=== PATIENT | male | born 1990 | race Two or more races ===

== ENCOUNTER 2016-11-03 08:05 | Emergency (ER) | payer BC ==
[2016-11-03 08:22] VITALS: BP 130/81; PULSE 90; TEMP 98; BMI 23.3
[2016-11-03] MEDS ORDERED: DIPHTH,PERTUSS(ACELL),TET 0.5 ML DISP.SYRIN IM ONE (08:37)
--- NOTE | 2016-11-03 08:40 | PDOC ---
History of Present Illness - General Chief Complaint: Laceration Stated Complaint: LACERATION TO LT HAND Time Seen by Provider: 11/03/16 08:23 History Source: Patient Exam Limitations: No Limitations - History of Present Illness Initial Comments: 11/03/16 19:49 26 yr male cut his right hand with a knife this am at home. 2 lacerations right thumb and index finger no active bleeding. Past History - Past Medical History Allergies/Adverse Reactions: Allergies Allergy/AdvReac Type Severity Reaction Status Date / Time No Known Allergies Allergy Unverified 11/03/16 08:14 - Psycho/Social/Smoking Cessation Hx Suicidal Ideation: No Smoking History: Never smoked Information on smoking cessation initiated: No Review of Systems - Review of Systems Able to Perform ROS?: Yes Is the patient limited Syriac proficient: No Constitutional: No: Symptoms Reported HEENTM: No: Symptoms Reported Integumentary: Yes: Symptoms Reported *Physical Exam - Vital Signs Last Vital Signs Temp Pulse Resp BP Pulse Ox 98 F 90 18 130/81 98 11/03/16 08:11 11/03/16 08:11 11/03/16 08:11 11/03/16 08:11 11/03/16 08:11 - Physical Exam General Appearance: Yes: Nourished, Appropriately Dressed HEENT: positive: EOMI, [place] Musculoskeletal: positive: Normal Inspection Extremity: positive: Normal Capillary Refill, Normal Inspection Integumentary: positive: Normal Color, Dry, Warm, Other (right thumb between PIP and MCP 1.0cm linear laceration dorsal side,no tendon involvement, FROM , right index finger at the tip of the finger with 0.5cm linear laceration superficial no tendon involvement, FROM nv intact all digits) Neurologic: positive: improvement nurse II-XII NML intact, Fully Oriented, Alert, Normal Mood/ Affect, Normal Response, Motor Strength 5/5 Procedures - Laceration/Wound Repair Right Proximal 1st digit Wound Length: to 2.5 cm Wound Explored: clean Wound's Depth, Shape: superficial, linear Betadine Prep: Yes Wound Repaired With: Dermabond Splint Applied: Yes (thumb splint) Right Distal 2nd digit Finger Wound Length: to 2.5 cm Wound Explored: clean Wound's Depth, Shape: superficial, linear Betadine Prep: Yes Wound Repaired With: Dermabond Medical Decision Making - Medical Decision Making 11/03/16 19:55 cc: finger lacerations superficial nv intact FROM no numbness or tingling wounds repaired with dermabnond pt agrees with plan and his sister who is with him all questions asked and answered *DC/Admit/Observation/Transfer Diagnosis at time of Disposition: Laceration - Discharge Dispostion Disposition: HOME Condition at time of disposition: Improved - Referrals Referrals: Fantasma Dumont MD [Primary Care Provider] - - Patient Instructions Printed Discharge Instructions: DI for Laceration Repair With Dermabond Additional Instructions: keep dry for at least 24 hours nothing to cover the glued areas keep dry for at least 3-4 days glue will peel off on its own in approximately one week any redness, pain drainage return to the ER - Post Discharge Activity Work/School Note: Back to Work
== END 2016-11-03 08:55 | disposition home or self-care (01) ==
LOC: JER 08:05 → JERFT 08:05
PROC: 0JQJ0ZZ Repair Right Hand Subcutaneous Tissue and Fascia, Open Approach (ICD-10-PCS; principal; 2016-11-03)
PROC: 3E0234Z Introduction of Serum, Toxoid and Vaccine into Muscle, Percutaneous Approach (ICD-10-PCS; 2016-11-03)
DX: S61.011A Laceration without foreign body of right thumb without damage to nail, initial encounter (principal); S61.210A Laceration without foreign body of right index finger without damage to nail, initial encounter; W26.0XXA Contact with knife, initial encounter; Y93.89 Activity, other specified; Y92.030 Kitchen in apartment as the place of occurrence of the external cause; Y99.8 Other external cause status
CPT/HCPCS: 90715; 99281-25